=== PATIENT | female | born 1970 | race African-American/Black ===

== ENCOUNTER 2020-04-29 14:52 | Emergency (ER) | payer MEDICAID ==
[~2020-04-29] VITALS: Ht 162.6 cm; Wt 109.0 kg
[~2020-04-29 14:52] MED LIST: ALBU18HF2 IH; AMLO10TA80 PO; ASPI-1497 PO; CHOL100044 PO; FERROUS GL325 ( 36 ) PO; GLIP10TA10 PO; HYDR-4134 PO; HYDR25TA PO; LISI40TA4 PO; METF-416 PO; TAP5 PO; VALS160T2 PO
[2020-04-29 15:09] VITALS: BP 179/105
[2020-04-29] MEDS ORDERED: SODIUM CHLORIDE 0.9% 1,000 ML IV ONE (18:17)
[2020-04-29] MEDS ORDERED: PROCHLORPERAZINE 10MG/2ML VIAL IV ONE (18:30)
[2020-04-29] MEDS ORDERED: DIPHENHYDRAMINE 25MG CAPSULE PO ONE (18:30)
[2020-04-29 19:36] LABS: BASOPHILS % 1.3 % (0.0-2.0); EOSINOPHILS % 1.6 % (0.0-5.0); HEMATOCRIT. 36.1 % (36.0-48.0); HEMOGLOBIN. 11.8 g/dL (12.0-16.0); LYMPHOCYTES % 17.5 % (20.0-50.0); MEAN CORPUSCULAR HEMOGLOBIN 25.2 pg (28.0-32.0); MEAN CORPUSCULAR VOLUME 77.2 fL (81.0-99.0); MEAN PLATELET VOLUME 8.9 fl (7.4-10.4); MONOCYTES % 7.1 % (2.0-8.0); NEUTROPHILS % 72.5 % (40.0-76.0); PLATELET 287 x1000/uL (130-400); RED BLOOD CELL COUNT 4.67 mill/uL (4.2-5.4); RED CELL DISTRIBUTION WIDTH 19.5 % (11.6-14.6)
[2020-04-29 19:39] LABS: CHLORIDE 100 mEq/L (98-107)
[2020-04-29] MEDS ORDERED: POTASSIUM CHLORIDE 20MEQ TABLET SR PO ONE (21:00)
[2020-04-29] MEDS ORDERED: KETOROLAC 15MG/ML VIAL IV ONE (22:00)
[2020-04-29] MEDS ORDERED: ACETAMINOPHEN 325MG TABLET PO ONE (22:00)
== END 2020-04-30 00:47 | disposition home or self-care (01) ==
LOC: ER 14:52
DX: R51 Headache (principal); E87.6 Hypokalemia; D50.9 Iron deficiency anemia, unspecified; J45.909 Unspecified asthma, uncomplicated; I11.0 Hypertensive heart disease with heart failure; I50.9 Heart failure, unspecified; E05.90 Thyrotoxicosis, unspecified without thyrotoxic crisis or storm; Z88.8 Allergy status to other drugs, medicaments and biological substances; Z79.82 Long term (current) use of aspirin; Z98.51 Tubal ligation status; Z98.62 Peripheral vascular angioplasty status
CPT/HCPCS: 36415; 70450; 80053; 85025; 93005; 96361; 96374; 96375; 99285; J0780; J1885; J7030; Q0163

== ENCOUNTER 2021-08-17 10:55 | Inpatient (IN) | payer MEDICAID, OTHER ==
[~2021-08-17] VITALS: Ht 162.6 cm; Wt 59.7 kg
[~2021-08-17 10:55] MED LIST changes: -ALBU18HF2 IH; +ASPI-1160 PO; -ASPI-1497 PO; +ATOR40TA70 PO; -CHOL100044 PO; +CLON-457 PO; +CLOP75TA33 PO; -FERROUS GL325 ( 36 ) PO; -GLIP10TA10 PO; -HYDR25TA PO; +INSULIN; -LISI40TA4 PO; +LOSA50TA41 MT; -METF-416 PO; -TAP5 PO; -VALS160T2 PO
[2021-08-17] MEDS ORDERED: SODIUM CHLORIDE 0.9% 1000ML BAG (SEPSIS BOLUS) IV ONE (11:15)
[2021-08-17 12:02] LABS: BASOPHILS % 0.6 % (0.0-2.0); EOSINOPHILS % 0.8 % (0.0-5.0); HEMATOCRIT. 45.9 % (36.0-48.0); HEMOGLOBIN. 14.4 g/dL (12.0-16.0); LYMPHOCYTES % 8.9 % (20.0-50.0); MEAN CORPUSCULAR HEMOGLOBIN 26.7 pg (28.0-32.0); MEAN CORPUSCULAR VOLUME 84.9 fL (81.0-99.0); MONOCYTES % 9.2 % (2.0-8.0); NEUTROPHILS % 80.5 % (40.0-76.0); PLATELET 251 x1000/uL (130-400); RED CELL DISTRIBUTION WIDTH 18.5 % (11.6-14.6)
[2021-08-17 12:03] LABS: CHLORIDE 129 mEq/L (98-107)
[2021-08-17 13:03] LABS: CLARITY URINE CLOUDY (CLEAR); COLOR URINE YELLOW (YELLOW); KETONES URINE NEGATIVE (NEGATIVE); LEUKOCYTE ESTERASE URINE TRACE (NEGATIVE); NITRITE URINE POSITIVE (NEGATIVE); OCCULT BLOOD URINE NEGATIVE (NEGATIVE); PROTEIN URINE 1+ (NEGATIVE)
[2021-08-17] MEDS ORDERED: ACETAMINOPHEN 325MG TABLET PO PRN (13:45)
[2021-08-17] MEDS ORDERED: GUAIFENESIN 200MG/10ML SUGAR FREE UDC PO PRN (13:45)
[2021-08-17] MEDS ORDERED: CLONIDINE 0.1MG TABLET PO PRN (13:45)
[2021-08-17] MEDS ORDERED: DOCUSATE SODIUM 100MG CAPSULE PO PRN (13:45)
[2021-08-17] MEDS ORDERED: NA PHOS,M-B/NA PHOS,DI-BA ENEMA 118ML PR PRN (13:45)
[2021-08-17] MEDS ORDERED: LORAZEPAM 2MG/ML CPJ IV PRN (13:45)
[2021-08-17] MEDS ORDERED: PIPERACILLIN/TAZ 3.375G PREMIX 50 ML IV NR (14:00)
[2021-08-17] MEDS: ENOXAPARIN 30MG/0.3ML SYR SUBCUT SCH (14:38)
[2021-08-17] MEDS: DEXTROSE 5% WATER 1,000 ML IV SCH (14:39)
[2021-08-17] MEDS: MULTIVITAMINS,THER W-MINERALS TABLET PO SCH (15:00)
[2021-08-17] MEDS ORDERED: PIPERACILLIN/TAZ 3.375G PREMIX 50 ML IV ONE (15:30)
[2021-08-17] MEDS ORDERED: PIPERACILLIN/TAZOBACTAM 3.375 G in DEXTROSE 5% WATER 50 ML IV SCH (22:00)
[2021-08-17 23:21] VITALS: BP 116/85
[2021-08-18 00:01] VITALS: BP 116/85
[2021-08-18] MEDS: PIPERACILLIN/TAZOBACTAM 3.375 G in DEXTROSE 5% WATER 50 ML IV SCH ×2 (00:44→05:55)
[2021-08-18] MEDS: DEXTROSE 5% WATER 1,000 ML IV SCH ×3 (00:44→19:45)
[2021-08-18 04:00] VITALS: BP 136/95
[2021-08-18 06:18] LABS: BASOPHILS % 0.5 % (0.0-2.0); EOSINOPHILS % 2.2 % (0.0-5.0); HEMATOCRIT. 37.3 % (36.0-48.0); HEMOGLOBIN. 12.1 g/dL (12.0-16.0); LYMPHOCYTES % 9.3 % (20.0-50.0); MEAN CORPUSCULAR HEMOGLOBIN 27.4 pg (28.0-32.0); MEAN CORPUSCULAR VOLUME 84.6 fL (81.0-99.0); MEAN PLATELET VOLUME 9.8 fl (7.4-10.4); MONOCYTES % 8.6 % (2.0-8.0); NEUTROPHILS % 79.4 % (40.0-76.0); PLATELET 205 x1000/uL (130-400); RED BLOOD CELL COUNT 4.42 mill/uL (4.2-5.4)
[2021-08-18 07:02] LABS: CHLORIDE 128 mEq/L (98-107)
[2021-08-18 08:05] VITALS: BP 132/84
[2021-08-18] MEDS: FOLIC ACID 1MG TABLET PO SCH (09:00)
[2021-08-18] MEDS: MULTIVITAMINS,THER W-MINERALS TABLET PO SCH (09:00)
[2021-08-18 12:03] VITALS: BP 141/97
[2021-08-18] MEDS: PIPERACILLIN/TAZOBACTAM 3.375G in DEXT 5% WATER 50ML IV SCH ×2 (16:11→22:59)
[2021-08-18] MEDS: ENOXAPARIN 30MG/0.3ML SYR SUBCUT SCH (16:12)
[2021-08-18 16:15] VITALS: BP 147/109
[2021-08-18 20:00] VITALS: BP 145/104
[2021-08-18] MEDS: HYDRALAZINE 20MG/ML VIAL IV PRN (21:03)
[2021-08-19] VITALS: BP 151/92
[2021-08-19 04:00] VITALS: BP 147/106
[2021-08-19] MEDS: DEXTROSE 5% WATER 1,000 ML IV SCH ×2 (05:07→14:53)
[2021-08-19] MEDS: HYDRALAZINE 20MG/ML VIAL IV PRN (05:10)
[2021-08-19] MEDS: PIPERACILLIN/TAZOBACTAM 3.375G in DEXT 5% WATER 50ML IV SCH ×2 (05:10→14:52)
[2021-08-19 06:24] LABS: BASOPHILS % 0.7 % (0.0-2.0); EOSINOPHILS % 3.4 % (0.0-5.0); HEMATOCRIT. 34.8 % (36.0-48.0); HEMOGLOBIN. 11.5 g/dL (12.0-16.0); LYMPHOCYTES % 11.4 % (20.0-50.0); MEAN CORPUSCULAR HEMOGLOBIN 27.3 pg (28.0-32.0); MEAN CORPUSCULAR VOLUME 82.5 fL (81.0-99.0); MEAN PLATELET VOLUME 10.2 fl (7.4-10.4); MONOCYTES % 8.2 % (2.0-8.0); NEUTROPHILS % 76.3 % (40.0-76.0); PLATELET 205 x1000/uL (130-400); RED BLOOD CELL COUNT 4.22 mill/uL (4.2-5.4); RED CELL DISTRIBUTION WIDTH 17.4 % (11.6-14.6)
[2021-08-19 06:34] LABS: CHLORIDE 125 mEq/L (98-107)
[2021-08-19 08:03] VITALS: BP 132/95
[2021-08-19] MEDS: MULTIVITAMINS,THER W-MINERALS TABLET PO SCH (09:00)
[2021-08-19] MEDS: FOLIC ACID 1MG TABLET PO SCH (09:00)
[2021-08-19] MEDS ORDERED: VANCOMYCIN 1250MG in DEXTROSE 5% WATER 250ML IV SCH (11:30)
[2021-08-19] MEDS: POTASSIUM CHLORIDE 20MEQ TABLET SR PO SCH (11:34)
[2021-08-19 12:00] VITALS: BP 122/89
[2021-08-19] MEDS: ENOXAPARIN 30MG/0.3ML SYR SUBCUT SCH (14:53)
[2021-08-19 15:30] VITALS: BP 135/97
[2021-08-19] MEDS: MEROPENEM 1000MG in NORMAL SALINE 100ML IV SCH (16:40)
[2021-08-19 20:00] VITALS: BP 148/104
[2021-08-20] VITALS: BP 123/93
[2021-08-20 06:41] LABS: CHLORIDE 121 mEq/L (98-107)
[2021-08-20 07:11] LABS: BASOPHILS % 0.4 % (0.0-2.0); EOSINOPHILS % 3.3 % (0.0-5.0); HEMATOCRIT. 36.3 % (36.0-48.0); HEMOGLOBIN. 11.6 g/dL (12.0-16.0); LYMPHOCYTES % 13.7 % (20.0-50.0); MEAN CORPUSCULAR HEMOGLOBIN 26.5 pg (28.0-32.0); MEAN CORPUSCULAR VOLUME 82.9 fL (81.0-99.0); MEAN PLATELET VOLUME 10.2 fl (7.4-10.4); MONOCYTES % 9.2 % (2.0-8.0); NEUTROPHILS % 73.4 % (40.0-76.0); PLATELET 222 x1000/uL (130-400); RED BLOOD CELL COUNT 4.38 mill/uL (4.2-5.4); RED CELL DISTRIBUTION WIDTH 17.5 % (11.6-14.6)
[2021-08-20] MEDS: MEROPENEM 1000MG in NORMAL SALINE 100ML IV SCH ×2 (07:19→17:14)
[2021-08-20] MEDS: DEXTROSE 5% WATER 1,000 ML IV SCH ×3 (07:19→23:12)
[2021-08-20 08:00] VITALS: BP 144/94
[2021-08-20] MEDS: MULTIVITAMINS,THER W-MINERALS TABLET PO SCH (09:23)
[2021-08-20] MEDS: POTASSIUM CHLORIDE 20MEQ TABLET SR PO SCH (09:23)
[2021-08-20] MEDS: FOLIC ACID 1MG TABLET PO SCH (09:23)
[2021-08-20] MEDS: VANCOMYCIN 750 MG PREMIX 150 ML IV SCH (11:33)
[2021-08-20 11:40] VITALS: BP 120/89
[2021-08-20] MEDS: ENOXAPARIN 30MG/0.3ML SYR SUBCUT SCH (14:46)
[2021-08-20 16:08] VITALS: BP 147/89
[2021-08-20 20:00] VITALS: BP 154/94
[2021-08-21] VITALS: BP 141/98
[2021-08-21 04:00] VITALS: BP 137/92
[2021-08-21] MEDS: MEROPENEM 1000MG in NORMAL SALINE 100ML IV SCH (05:36)
[2021-08-21 06:51] LABS: BASOPHILS % 0.4 % (0.0-2.0); EOSINOPHILS % 3.2 % (0.0-5.0); HEMATOCRIT. 32.2 % (36.0-48.0); HEMOGLOBIN. 10.7 g/dL (12.0-16.0); LYMPHOCYTES % 13.5 % (20.0-50.0); MEAN CORPUSCULAR HEMOGLOBIN 27.3 pg (28.0-32.0); MEAN CORPUSCULAR VOLUME 82.1 fL (81.0-99.0); MEAN PLATELET VOLUME 10.1 fl (7.4-10.4); MONOCYTES % 10.4 % (2.0-8.0); NEUTROPHILS % 72.5 % (40.0-76.0); PLATELET 188 x1000/uL (130-400); RED BLOOD CELL COUNT 3.92 mill/uL (4.2-5.4); RED CELL DISTRIBUTION WIDTH 16.7 % (11.6-14.6)
[2021-08-21 08:00] VITALS: BP 138/86
[2021-08-21] MEDS: MULTIVITAMINS,THER W-MINERALS TABLET PO SCH (09:18)
[2021-08-21] MEDS: FOLIC ACID 1MG TABLET PO SCH (09:18)
[2021-08-21] MEDS: POTASSIUM CHLORIDE 20MEQ TABLET SR PO SCH (09:18)
[2021-08-21] MEDS: DEXTROSE 5% WATER 1,000 ML IV SCH (09:19)
[2021-08-21 10:03] VITALS: BP 138/86
[2021-08-21] MEDS: VANCOMYCIN 750 MG PREMIX 150 ML IV SCH (11:17)
[2021-08-21] MEDS ORDERED: ENOXAPARIN 40MG/0.4ML SYR SUBCUT SCH (15:00)
== END 2021-08-21 12:15 | disposition home or self-care (01) | DRG 426 ==
LOC: ER 11:21 → 6WST 13:00 → EDBEDREQTM 13:04 → EDBEDREQ 13:04 → EDBEDREQSVC 13:04 → ENRESERV 22:32
PROVIDERS: ADMIT Hospitalist; ATTEND Hospitalist
DX: E87.0 Hyperosmolality and hypernatremia (principal); G93.41 Metabolic encephalopathy; N17.9 Acute kidney failure, unspecified; R78.81 Bacteremia; N39.0 Urinary tract infection, site not specified; E03.9 Hypothyroidism, unspecified; E11.9 Type 2 diabetes mellitus without complications; B96.20 Unspecified Escherichia coli [E. coli] as the cause of diseases classified elsewhere; E86.0 Dehydration; I10 Essential (primary) hypertension; R13.10 Dysphagia, unspecified; Z16.12 Extended spectrum beta lactamase (ESBL) resistance; Z86.73 Personal history of transient ischemic attack (TIA), and cerebral infarction without residual deficits; Z74.01 Bed confinement status; Z88.8 Allergy status to other drugs, medicaments and biological substances; Z79.82 Long term (current) use of aspirin; Z79.4 Long term (current) use of insulin; Z79.899 Other long term (current) drug therapy
CPT/HCPCS: 36415; 71045; 80048; 80053; 80202; 81003; 82140; 82962; 83036; 83605; 83735; 83880; 84145; 84484; 85025; 87077; 87186; 92610; 93005; 99291; C1893; J0360; J1650; J2060; J2185; J2543; J3370; J7030; J7060; J7070; A4315